=== PATIENT | female | born 1930 | race Caucasian/White ===

== ENCOUNTER 2017-03-29 18:08 | Inpatient (IN) | payer MEDICARE, BC ==
[2017-03-29 18:23] LABS: Glucose,Whole Blood >600 mg/dL (75-99)
[2017-03-29] MEDS ORDERED: SODIUM CHLORIDE 0.9% 1,000 ML IV STA (18:52)
--- NOTE | 2017-03-29 18:57 | ED ---
General Adult HPI - General Chief complaint: Recheck/Abnormal Lab/Rx Stated complaint: abn labs Time Seen by Provider: 03/29/17 18:45 Source: patient, EMS Mode of arrival: EMS Limitations: no limitations - History of Present Illness Initial comments: This 86-year-old white female presents with daughter with the complaint of having some lab abnormalities. She is currently bedbound. She has a history of significant renal disease. She apparently had labs drawn 3 days ago and her doctor called her today and told her to come to the ER. Her blood sugar apparently was over 500. Her kidney function and potassium was off as well. She, overall, feels quite well. She apparently had some chest pain and shortness of breath earlier but none since. She denies any known weakness but once again is bedbound. She has indwelling Norris catheter as well. She apparently has previously been on hospice but is not currently on hospice. She has stage IV renal disease but does not want any hemodialysis. No other complaints or modifying factors. Chest x-ray shows some subsegmental atelectasis but no heart failure. CODE STATUS is discussed in both patient and daughter who is the power of securities attorney relate that she is a no CODE STATUS. Overall, it is felt as though she is fairly significantly ill but would still require admission to the hospital for further treatment. Case will be discussed with internal medicine shortly patient is noted for further treatment. - Related Data Home Medications Medication Instructions Recorded Confirmed Calcium Carb-Vit D 500Mg-200Un 1 tab PO QAM 03/05/14 03/29/17 [Oscal 500+D] Enalapril [Vasotec] 5 mg PO QAM 03/05/14 03/29/17 Furosemide [Lasix] 40 mg PO DAILY 03/05/14 03/29/17 Potassium Chloride [Potassium 20 meq PO HS 03/05/14 03/29/17 Chloride ER] Diazepam [Valium] 2 mg PO TID 05/02/14 03/29/17 Cholecalciferol [Vitamin D3] 5,000 unit PO QAM 03/11/15 03/29/17 Levothyroxine Sodium [Synthroid] 150 mcg PO DAILY 03/11/15 03/29/17 Pantoprazole Sodium 40 mg PO DAILY 03/11/15 03/29/17 glipiZIDE [Glucotrol] 5 mg PO DAILY 03/11/15 03/29/17 Acetaminophen [Tylenol] 500 mg PO Q4-6H PRN 03/29/17 03/29/17 Carvedilol [Coreg] 25 mg PO BID 03/29/17 03/29/17 Isosorbide Mononitrate [Imdur] 120 mg PO DAILY 03/29/17 03/29/17 Latanoprost [Xalatan 0.005%] 1 drop RIGHT EYE HS 03/29/17 03/29/17 Nystatin [Nystop] 1 applic TOPICAL BID PRN 03/29/17 03/29/17 Ranolazine [Ranexa] 1,000 mg PO BID 03/29/17 03/29/17 Sennosides/Docusate Sodium [Dok 1 tab PO BID PRN 03/29/17 03/29/17 Plus Tablet] Allergies Allergy/AdvReac Type Severity Reaction Status Date / Time narcotic AdvReac Confusion Uncoded 03/29/17 18:10 Review of Systems ROS Statement: Those systems with pertinent positive or pertinent negative responses have been documented in the HPI. ROS Other: All systems not noted in ROS Statement are negative. Past Medical History Past Medical History: Chest Pain / Angina, Heart Failure, Diabetes Mellitus, Deep Vein Thrombosis (DVT), GERD/Reflux, Hearing Disorder / Deafness, Hyperlipidemia, Hypertension, Osteoarthritis (OA), Thyroid Disorder Additional Past Medical History / Comment(s): INCONT OF URINE, DIABEETIC RETINOPATHY, GLAUCOMA MAD DEGENERATION, History of Any Multi-Drug Resistant Organisms: None Reported Past Surgical History: Appendectomy, Cholecystectomy, Heart Catheterization With Stent, Hernia Repair, Orthopedic Surgery Additional Past Surgical History / Comment(s): TABITHA cataract, right shoulder 11 STENTS, UMBILICAL HERNIA REPAIR, TABITHA BREAST BIOPSIES- NEG, RT ROTATOR CUFF REPAIR, MESH FILTER IMPLNATED JANUARY OF 2013 D/T BLOOD CLOTS Past Anesthesia/Blood Transfusion Reactions: No Reported Reaction Additional Past Anesthesia/Blood Transfusion Reaction / Comment(s): HX BLOOD TRANSFUSION, VERTIGO Date of Last Stent Placement:: UNK Past Psychological History: No Psychological Hx Reported Smoking Status: Never smoker Past Alcohol Use History: None Reported Past Drug Use History: None Reported - Past Family History Father Family Medical History: Congestive Heart Failure (CHF), Hypertension, Myocardial Infarction ([place]), Prostate Disorder Mother Family Medical History: Congestive Heart Failure (CHF), Hyperlipidemia, Hypertension, Renal Disease General Exam - General Exam Comments Initial Comments: GENERAL: The patient is well nourished and well hydrated. VITAL SIGNS: Heart rate, blood pressure, respiratory rate reviewed as recorded in nurse's notes. EYES: Pupils are round and reactive. Extraocular movements are intact. No conjunctival / lid redness or swelling. ENT: No external evidence of injury, swelling, or ecchymosis. Airway is patent. Throat is clear. NECK: Nontender. No swelling or evidence of injury. No subcutaneous emphysema. Trachea is midline. No thyroid mass. HEART: Regular rate and rhythm. Good peripheral pulses. LUNGS/CHEST: Breath sounds clear and equal bilaterally. No rales, rhonchi, or wheezes. No ecchymosis, subcutaneous emphysema, or tenderness. ABDOMEN: Abdomen soft without tenderness. No palpable masses or organomegaly. No peritoneal signs. No abdominal wall swelling or ecchymosis. An indwelling Norris catheter is noted. EXTREMITIES: No extremity tenderness. Normal muscle tone and function. No thoracolumbar tenderness. NEUROLOGIC: Sensation is grossly intact. Cranial nerve exam reveals face is symmetrical, tongue is midline, speech is clear. SKIN: No abrasions or ecchymosis is noted. No induration or masses noted. There is a small sore noted to the right foot. There is slight decubitus ulcer noted. PSYCHIATRIC: Alert and oriented. Appropriate behavior and judgment. Limitations: no limitations Course Vital Signs 03/29/17 03/29/17 03/29/17 18:10 19:13 19:52 Temperature 97.8 F Pulse Rate 76 78 54 L Respiratory 18 18 16 Rate Blood Pressure 117/65 101/51 97/54 O2 Sat by Pulse 97 97 98 Oximetry 03/29/17 20:46 Temperature Pulse Rate 73 Respiratory 16 Rate Blood Pressure 97/54 O2 Sat by Pulse 98 Oximetry Medical Decision Making - Medical Decision Making The patient was seen and examined. All diagnostics were reviewed. The EKG shows a normal sinus rhythm with occasional PVC. There is nonspecific ST-T wave changes noted. The DC interval is 188, they castration is 76, and the QTc interval is 426. An IV was started and she is only mildly hydrated. Laboratory is reviewed. It shows that her glucoses severely elevated and she started on an insulin drip. She also has a significant urinary tract infection and Rocephin is ordered. In addition, her troponin is elevated. She apparently did have some slight chest pain and shortness breath earlier today and they gave her some nitroglycerin with relief. It likely is elevated due to her chronic renal disease but this will be trended. CODE STATUS is discussed with him in detail and she is a no code. - Lab Data Result diagrams: 03/29/17 19:01 03/29/17 19:01 Lab Results 03/29/17 03/29/17 03/29/17 Range/Units 18:17 19:01 19:01 WBC 10.1 (3.8-10.6) k/uL RBC 3.52 L (3.80-5.40) m/uL Hgb 12.5 (11.4-16.0) gm/dL Hct 37.6 (34.0-46.0) % MCV 106.7 H (80.0-100.0) fL MCH 35.4 H (25.0-35.0) pg MCHC 33.2 (31.0-37.0) g/dL RDW 12.6 (11.5-15.5) % Plt Count 248 (150-450) k/uL Neutrophils % 70 % Lymphocytes % 19 % Monocytes % 6 % Eosinophils % 3 % Basophils % 1 % Neutrophils # 7.1 (1.3-7.7) k/uL Lymphocytes # 1.9 (1.0-4.8) k/uL Monocytes # 0.6 (0-1.0) k/uL Eosinophils # 0.3 (0-0.7) k/uL Basophils # 0.1 (0-0.2) k/uL Macrocytosis Moderate PT (9.0-12.0) sec INR (<1.1) APTT (22.0-30.0) sec Sodium (137-145) mmol/L Potassium (3.5-5.1) mmol/L Chloride (98-107) mmol/L Carbon Dioxide (22-30) mmol/L Anion Gap mmol/L BUN (7-17) mg/dL Creatinine (0.52-1.04) mg/dL Est GFR (MDRD) Af Amer (>60 ml/min/1.73 sqM) Est GFR (MDRD) Non-Af (>60 ml/min/1.73 sqM) Glucose (74-99) mg/dL POC Glucose (mg/dL) >600 H (75-99) mg/dL POC Glu Support Worker ID Saundra Bhatti Plasma Lactic Acid Cliff (0.7-2.0) mmol/L Calcium (8.4-10.2) mg/dL Phosphorus (2.5-4.5) mg/dL Magnesium (1.6-2.3) mg/dL Total Bilirubin (0.2-1.3) mg/dL AST (14-36) U/L ALT (9-52) U/L Alkaline Phosphatase (38-126) U/L Total Creatine Kinase 42 (30-135) U/L CK-MB (CK-2) 1.3 (0.0-2.4) ng/mL CK-MB (CK-2) Rel Index 3.1 Troponin I 0.038 H* (0.000-0.034) ng/mL Total Protein (6.3-8.2) g/dL Albumin (3.5-5.0) g/dL TSH (0.465-4.680) mIU/L Urine Color Urine Appearance (Clear) Urine pH (5.0-8.0) Ur Specific [place] (1.001-1.035) Urine Protein (Negative) Urine Glucose (UA) (Negative) Urine Ketones (Negative) Urine Blood (Negative) Urine Nitrite (Negative) Urine Bilirubin (Negative) Urine Urobilinogen (<2.0) mg/dL Ur Leukocyte Esterase (Negative) Urine RBC (0-5) /hpf Urine WBC (0-5) /hpf Urine WBC Clumps (None) /hpf Urine Bacteria (None) /hpf Acetone, Qual (Negative) 03/29/17 03/29/17 03/29/17 Range/Units 19:01 19:01 19:01 WBC (3.8-10.6) k/uL RBC (3.80-5.40) m/uL Hgb (11.4-16.0) gm/dL Hct (34.0-46.0) % MCV (80.0-100.0) fL MCH (25.0-35.0) pg MCHC (31.0-37.0) g/dL RDW (11.5-15.5) % Plt Count (150-450) k/uL Neutrophils % % Lymphocytes % % Monocytes % % Eosinophils % % Basophils % % Neutrophils # (1.3-7.7) k/uL Lymphocytes # (1.0-4.8) k/uL Monocytes # (0-1.0) k/uL Eosinophils # (0-0.7) k/uL Basophils # (0-0.2) k/uL Macrocytosis PT 10.6 (9.0-12.0) sec INR 1.0 (<1.1) APTT 21.4 L (22.0-30.0) sec Sodium 129 L (137-145) mmol/L Potassium 5.3 H (3.5-5.1) mmol/L Chloride 94 L (98-107) mmol/L Carbon Dioxide 24 (22-30) mmol/L Anion Gap 11 mmol/L BUN 35 H (7-17) mg/dL Creatinine 2.40 H (0.52-1.04) mg/dL Est GFR (MDRD) Af Amer 23 (>60 ml/min/1.73 sqM) Est GFR (MDRD) Non-Af 19 (>60 ml/min/1.73 sqM) Glucose 652 H* (74-99) mg/dL POC Glucose (mg/dL) (75-99) mg/dL POC Glu Support Worker ID Plasma Lactic Acid Cliff 1.7 (0.7-2.0) mmol/L Calcium 9.0 (8.4-10.2) mg/dL Phosphorus 3.5 (2.5-4.5) mg/dL Magnesium 1.8 (1.6-2.3) mg/dL Total Bilirubin 0.5 (0.2-1.3) mg/dL AST 10 L (14-36) U/L ALT 23 (9-52) U/L Alkaline Phosphatase 61 (38-126) U/L Total Creatine Kinase (30-135) U/L CK-MB (CK-2) (0.0-2.4) ng/mL CK-MB (CK-2) Rel Index Troponin I (0.000-0.034) ng/mL Total Protein 5.5 L (6.3-8.2) g/dL Albumin 3.0 L (3.5-5.0) g/dL TSH 6.820 H (0.465-4.680) mIU/L Urine Color Urine Appearance (Clear) Urine pH (5.0-8.0) Ur Specific [place] (1.001-1.035) Urine Protein (Negative) Urine Glucose (UA) (Negative) Urine Ketones (Negative) Urine Blood (Negative) Urine Nitrite (Negative) Urine Bilirubin (Negative) Urine Urobilinogen (<2.0) mg/dL Ur Leukocyte Esterase (Negative) Urine RBC (0-5) /hpf Urine WBC (0-5) /hpf Urine WBC Clumps (None) /hpf Urine Bacteria (None) /hpf Acetone, Qual Negative (Negative) 03/29/17 Range/Units 19:01 WBC (3.8-10.6) k/uL RBC (3.80-5.40) m/uL Hgb (11.4-16.0) gm/dL Hct (34.0-46.0) % MCV (80.0-100.0) fL MCH (25.0-35.0) pg MCHC (31.0-37.0) g/dL RDW (11.5-15.5) % Plt Count (150-450) k/uL Neutrophils % % Lymphocytes % % Monocytes % % Eosinophils % % Basophils % % Neutrophils # (1.3-7.7) k/uL Lymphocytes # (1.0-4.8) k/uL Monocytes # (0-1.0) k/uL Eosinophils # (0-0.7) k/uL Basophils # (0-0.2) k/uL Macrocytosis PT (9.0-12.0) sec INR (<1.1) APTT (22.0-30.0) sec Sodium (137-145) mmol/L Potassium (3.5-5.1) mmol/L Chloride (98-107) mmol/L Carbon Dioxide (22-30) mmol/L Anion Gap mmol/L BUN (7-17) mg/dL Creatinine (0.52-1.04) mg/dL Est GFR (MDRD) Af Amer (>60 ml/min/1.73 sqM) Est GFR (MDRD) Non-Af (>60 ml/min/1.73 sqM) Glucose (74-99) mg/dL POC Glucose (mg/dL) (75-99) mg/dL POC Glu Support Worker ID Plasma Lactic Acid [place] (0.7-2.0) mmol/L Calcium (8.4-10.2) mg/dL Phosphorus (2.5-4.5) mg/dL Magnesium (1.6-2.3) mg/dL Total Bilirubin (0.2-1.3) mg/dL AST (14-36) U/L ALT (9-52) U/L Alkaline Phosphatase (38-126) U/L Total Creatine Kinase (30-135) U/L CK-MB (CK-2) (0.0-2.4) ng/mL CK-MB (CK-2) Rel Index Troponin I (0.000-0.034) ng/mL Total Protein (6.3-8.2) g/dL Albumin (3.5-5.0) g/dL TSH (0.465-4.680) mIU/L Urine Color Yellow Urine Appearance Turbid H (Clear) Urine pH 5.5 (5.0-8.0) Ur Specific [place] 1.019 (1.001-1.035) Urine Protein Trace H (Negative) Urine Glucose (UA) 4+ H (Negative) Urine Ketones Negative (Negative) Urine Blood Small H (Negative) Urine Nitrite Positive H (Negative) Urine Bilirubin Negative (Negative) Urine Urobilinogen <2.0 (<2.0) mg/dL Ur Leukocyte Esterase Large H (Negative) Urine RBC 20 H (0-5) /hpf Urine WBC >182 H (0-5) /hpf Urine WBC Clumps Many H (None) /hpf Urine Bacteria Many H (None) /hpf Acetone, Qual (Negative) Disposition Clinical Impression: Hyperkalemia, Hyperglycemia, Chronic renal disease, Diabetes, Elevated troponin , Chest pain, Dyspnea, Hypochloremia, Hyponatremia, UTI (urinary tract infection ) due to urinary indwelling Norris catheter, Decubital ulcer, Do not intubate, cardiopulmonary resuscitation (CPR)-only code status Disposition: ADMITTED IP TO THIS HOSP Condition: Fair Time of Disposition: 21:21 Decision Date: 03/29/17 Decision Time: 21:21
[2017-03-29 19:26] LABS: Basophils # (A) 0.1 k/uL (0-0.2); Basophils % (A) 1 %; CH 35.3; CHCM 33.2; Eosinophils # (A) 0.3 k/uL (0-0.7); Eosinophils % (A) 3 %; HCT 37.6 % (34.0-46.0); HDW 2.57; HGB 12.5 gm/dL (11.4-16.0); Luc # (Auto) 0.18; Luc % (Auto) 2; Lymphocytes # (A) 1.9 k/uL (1.0-4.8); Lymphocytes % (A) 19 %; MCH 35.4 pg (25.0-35.0); MCHC 33.2 g/dL (31.0-37.0); MCV 106.7 fL (80.0-100.0); Macrocytosis Moderate; Mean Platelet Volume 9.1; Monocytes # (A) 0.6 k/uL (0-1.0); Monocytes % (A) 6 %; Neutrophils # (A) 7.1 k/uL (1.3-7.7); Neutrophils % (A) 70 %; RBC 3.52 m/uL (3.80-5.40); RDW 12.6 % (11.5-15.5); WBC 10.1 k/uL (3.8-10.6); WBC (Perox) 9.99
--- NOTE | 2017-03-29 19:32 | XR ---
EXAMINATION TYPE: XR chest 1V portable DATE OF EXAM: 03/29/2017 COMPARISON: 03/11/2015 HISTORY: Short of breath TECHNIQUE: Single frontal view of the chest is obtained. FINDINGS: Heart is enlarged. There is mild linear density at the left lung base. There is no heart f ailure. There are chest leads. Thoracic aorta is atheromatous. I see no pleural effusion. IMPRESSION: There is mild scarring or subsegmental atelectasis at the left lung base without change compared to old exam. No heart failure. Mild cardiomegaly.
[2017-03-29 19:40] LABS: Appearance,Urine Turbid (Clear); Bacteria,Urine Many /hpf; Bilirubin,Urine Negative (Negative); Glucose,Urine (UA) 4+ (Negative); Ketones,Urine Negative (Negative); Leukocyte Esterase,Urine Large (Negative); Nitrite,Urine Positive (Negative); PH, Urine 5.5 (5.0-8.0); Particle Count 21096; Protein,Urine Trace (Negative); RBC,Urine 20 /hpf (0-5); Specific Gravity,Urine 1.019 (1.001-1.035); UA Billing (MACRO vs. MICRO) MICRO; Urobilinogen,Urine <2.0 mg/dL (<2.0); WBC,Urine >182 /hpf (0-5)
[2017-03-29 19:54] LABS: Prothrombin Time 10.6 sec (9.0-12.0)
[2017-03-29 20:00] LABS: ALT 23 U/L (9-52); AST 10 U/L (14-36); Alkaline Phosphatase 61 U/L (38-126); Anion Gap 11 mmol/L; Blood Urea Nitrogen 35 mg/dL (7-17); Carbon Dioxide 24 mmol/L (22-30); Chloride 94 mmol/L (98-107); Magnesium 1.8 mg/dL (1.6-2.3); Non-African American GFR(MDRD) 19 (>60 ml/min/1.73 sqM); Phosphorous 3.5 mg/dL (2.5-4.5); Potassium 5.3 mmol/L (3.5-5.1); Sodium 129 mmol/L (137-145); Total Bilirubin 0.5 mg/dL (0.2-1.3); Total Protein 5.5 g/dL (6.3-8.2)
[2017-03-29 20:04] LABS: Creatine Kinase MB 1.3 ng/mL (0.0-2.4)
[2017-03-29 20:11] LABS: Glucose 652 mg/dL (74-99)
[2017-03-29 20:12] LABS: Troponin I 0.038 ng/mL (0.000-0.034)
[2017-03-29 20:13] LABS: Partial Thromboplastin Time 21.4 sec (22.0-30.0)
[2017-03-29 21:31] LABS: Glucose,Whole Blood 579 mg/dL (75-99)
[2017-03-29] MEDS ORDERED: ASPIRIN 81 MG CHEW PO STA (21:33)
[2017-03-29] MEDS ORDERED: NITROGLYCERIN SL TABS 0.4 MG TAB SUBLINGUAL PRN (21:54)
[2017-03-29] MEDS ORDERED: HEPARIN SODIUM,PORCINE 5,000 UNIT/ML 1 ML VIAL IV PRN (21:54)
[2017-03-29] MEDS ORDERED: HEPARIN SODIUM,PORCINE 5,000 UNIT/ML 1 ML VIAL IV ONE (21:54)
[2017-03-29] MEDS ORDERED: NYSTATIN 100,000 UNIT/GM POWD 15 GM TOPICAL PRN (21:57)
[2017-03-29] MEDS ORDERED: ACETAMINOPHEN TAB 500 MG TAB PO PRN (21:57)
[2017-03-29] MEDS ORDERED: SENNOSIDES-DOCUSATE SODIUM 1 EACH TAB PO PRN (21:57)
[2017-03-29] MEDS ORDERED: INSULIN REGULAR 100 UNIT in SODIUM CHLORIDE 0.9% 100 ML IV ONE (22:00)
[2017-03-29 22:29] LABS: Glucose,Whole Blood 538 mg/dL (75-99)
[2017-03-29] MEDS: HEPARIN SODIUM,PORCINE/D5W PMX 25,000 UNIT in DEXTROSE/WATER 1 500ML.BAG IV SCH (22:40)
[2017-03-29] MEDS: NITROGLYCERIN OINT 1 INCH/GM PACKET TOPICAL SCH (23:10)
[2017-03-29 23:38] LABS: Glucose,Whole Blood 465 mg/dL (75-99)
[2017-03-29] MEDS: DIAZEPAM 2 MG TAB PO SCH (23:43)
[2017-03-30 00:30] LABS: Glucose,Whole Blood 361 mg/dL (75-99)
[2017-03-30 02:09] LABS: Glucose,Whole Blood 191 mg/dL (75-99)
[2017-03-30 02:41] LABS: Mean Platelet Volume 7.9
[2017-03-30 03:15] LABS: Creatine Kinase MB 1.2 ng/mL (0.0-2.4)
[2017-03-30 03:33] LABS: Troponin I 0.045 ng/mL (0.000-0.034)
[2017-03-30 03:42] LABS: Cholesterol 271 mg/dL (<200); HDL Cholesterol 38 mg/dL (40-60); Triglycerides 161 mg/dL (<150)
[2017-03-30 04:04] LABS: Glucose,Whole Blood 87 mg/dL (75-99)
[2017-03-30 05:43] LABS: Glucose,Whole Blood 115 mg/dL (75-99)
[2017-03-30] MEDS: LEVOTHYROXINE 100 MCG TAB PO SCH (06:03)
[2017-03-30] MEDS: INSULIN LISPRO (humaLOG) 300 UNIT/3 ML VIAL SQ SCH ×6 (06:53→21:00)
[2017-03-30 07:10] LABS: Glucose,Whole Blood 165 mg/dL (75-99)
[2017-03-30 07:22] LABS: Creatine Kinase MB 1.2 ng/mL (0.0-2.4)
[2017-03-30 07:26] LABS: Troponin I 0.048 ng/mL (0.000-0.034)
[2017-03-30] MEDS: CALCIUM CARB-VIT D 500MG-200UN 1 EACH TAB PO SCH (08:24)
[2017-03-30] MEDS: CHOLECALCIFEROL 1,000 UNIT TAB PO SCH (08:26)
[2017-03-30] MEDS: NITROGLYCERIN OINT 1 INCH/GM PACKET TOPICAL SCH ×4 (08:28→20:55)
[2017-03-30] MEDS: ASPIRIN 325 MG TAB PO SCH (08:32)
[2017-03-30] MEDS: PANTOPRAZOLE 40 MG TABLET PO SCH (08:32)
[2017-03-30] MEDS ORDERED: FUROSEMIDE 40 MG TAB PO SCH (09:00)
[2017-03-30] MEDS ORDERED: glipiZIDE 5 MG TAB PO SCH (09:00)
[2017-03-30] MEDS ORDERED: LEVOTHYROXINE 75 MCG TAB PO SCH (09:00)
[2017-03-30] MEDS ORDERED: LISINOPRIL 10 MG TAB PO SCH (09:00)
[2017-03-30 09:29] LABS: Calcium 8.8 mg/dL (8.4-10.2); Potassium 4.3 mmol/L (3.5-5.1); Total Bilirubin 0.6 mg/dL (0.2-1.3); Total Protein 5.5 g/dL (6.3-8.2)
--- NOTE | 2017-03-30 09:58 | P.NPCON ---
History of Present Illness - Reason for Consult acute renal failure - History of Present Illness Reason for consultation: Acute kidney injury on chronic kidney disease History of present illness: Patient is a 86-year-old female seen in renal consultation for acute kidney injury on chronic kidney disease. Patient recently had blood work done a few days ago and was advised to come to the hospital due to abnormal values. Her blood sugar was over 600 and she was also noted to be in acute renal failure. Patient does have chronic kidney disease stage IV with baseline creatinine in the range of 1.5-2 since 2015. Creatinine was 2.4 yesterday and is a little improved at 2.3 today. Her blood sugars were over 600 and was 165 as of this morning. Patient denies any use of NSAIDs. Denies any vomiting or diarrhea. She denies any chest pain or shortness of breath. She does have a Norris catheter in place. Apparently the patient was on hospice for the past 1 year but her condition improved and she was subsequently taken off hospice about a month ago. Denies family history of renal disease. Her prior urinalysis was quite benign and this admission was suggestive of a urinary tract infection. Urine culture is pending. Her blood pressures have been on the lower side in the systolic 80s to 90s. She is currently receiving Lasix as well as IV fluids. Vital signs are stable. General: The patient appeared well nourished and normally developed. HEENT: Head exam is unremarkable. Neck is without jugular venous distension. LUNGS: Lungs are clear to auscultation and percussion. Breath sounds decreased. HEART: Rate and Rhythm are regular. First and second heart sounds normal. No murmurs, rubs or gallops. ABDOMEN: Abdominal exam reveals normal bowel sounds. Non-tender and non- distended. No evidence of peritonitis. EXTREMITITES: No clubbing, cyanosis, or edema. Past Medical History Past Medical History: Chest Pain / Angina, Heart Failure, Diabetes Mellitus, Deep Vein Thrombosis (DVT), GERD/Reflux, Hearing Disorder / Deafness, Hyperlipidemia, Hypertension, Osteoarthritis (OA), Thyroid Disorder Additional Past Medical History / Comment(s): INCONT OF URINE, DIABEETIC RETINOPATHY, GLAUCOMA MAD DEGENERATION, History of Any Multi-Drug Resistant Organisms: None Reported Past Surgical History: Appendectomy, Cholecystectomy, Heart Catheterization With Stent, Hernia Repair, Orthopedic Surgery Additional Past Surgical History / Comment(s): TABITHA cataract, right shoulder 11 STENTS, UMBILICAL HERNIA REPAIR, TABITHA BREAST BIOPSIES- NEG, RT ROTATOR CUFF REPAIR, MESH FILTER IMPLNATED JANUARY OF 2013 D/T BLOOD CLOTS Past Anesthesia/Blood Transfusion Reactions: No Reported Reaction Additional Past Anesthesia/Blood Transfusion Reaction / Comment(s): HX BLOOD TRANSFUSION, VERTIGO Date of Last Stent Placement:: UNK Past Psychological History: No Psychological Hx Reported Additional Psychological History / Comment(s): 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 GETS NO OUTSIDE SERVICES. Smoking Status: Never smoker Past Alcohol Use History: None Reported Past Drug Use History: None Reported - Past Family History Father Family Medical History: Congestive Heart Failure (CHF), Hypertension, Myocardial Infarction ([place]), Prostate Disorder Mother Family Medical History: Congestive Heart Failure (CHF), Hyperlipidemia, Hypertension, Renal Disease Medications and Allergies Home Medications Medication Instructions Recorded Confirmed Type Calcium Carb-Vit D 500Mg-200Un 1 tab PO QAM 03/05/14 03/29/17 History [Oscal 500+D] Enalapril [Vasotec] 5 mg PO QAM 03/05/14 03/29/17 History Furosemide [Lasix] 40 mg PO DAILY 03/05/14 03/29/17 History Potassium Chloride [Potassium 20 meq PO HS 03/05/14 03/29/17 History Chloride ER] Diazepam [Valium] 2 mg PO TID 05/02/14 03/29/17 History Cholecalciferol [Vitamin D3] 5,000 unit PO QAM 03/11/15 03/29/17 History Levothyroxine Sodium [Synthroid] 150 mcg PO DAILY 03/11/15 03/29/17 History Pantoprazole Sodium 40 mg PO DAILY 03/11/15 03/29/17 History glipiZIDE [Glucotrol] 5 mg PO DAILY 03/11/15 03/29/17 History Acetaminophen [Tylenol] 500 mg PO Q4-6H PRN 03/29/17 03/29/17 History Carvedilol [Coreg] 25 mg PO BID 03/29/17 03/29/17 History Isosorbide Mononitrate [Imdur] 120 mg PO DAILY 03/29/17 03/29/17 History Latanoprost [Xalatan 0.005%] 1 drop RIGHT EYE HS 03/29/17 03/29/17 History Nystatin [Nystop] 1 applic TOPICAL BID PRN 03/29/17 03/29/17 History Ranolazine [Ranexa] 1,000 mg PO BID 03/29/17 03/29/17 History Sennosides/Docusate Sodium [Dok 1 tab PO BID PRN 03/29/17 03/29/17 History Plus Tablet] Allergies Allergy/AdvReac Type Severity Reaction Status Date / Time narcotic AdvReac Confusion Uncoded 03/29/17 18:10 Physical Exam Vitals: Vital Signs Temp Pulse Pulse Resp BP BP Pulse Ox 03/30/17 08:00 96.9 F L 80 18 88/48 98 03/30/17 04:00 81 18 93/53 93 L 03/29/17 23:44 96.9 F L 97 18 100/55 97 03/29/17 22:46 80 16 115/53 97 03/29/17 21:38 80 16 92/50 97 03/29/17 20:46 73 16 97/54 98 03/29/17 19:52 54 L 16 97/54 98 03/29/17 19:13 78 18 101/51 97 03/29/17 18:10 97.8 F 76 18 117/65 97 Intake and Output 03/29/17 03/30/17 03/30/17 22:59 06:59 14:59 Intake Total 5.252 635.484 Balance 5.252 635.484 Intake: IV 600 Sodium Chloride 0.9% 1, 600 000 ml @ 75 mls/hr IV . [id number] STA Rx#:[id number] Intake, IV Titration 5.252 35.484 Amount Insulin Regular 100 unit 5.252 35.484 In Sodium Chloride 0.9% 100 ml @ 4 UNIT/HR 4.04 mls/hr IV .Q24H ONE Rx#: [id number] Other: Voiding Method Indwelling Catheter Indwelling Catheter Weight 77.111 kg 84.6 kg Results - Lab Results Most recent lab results Calcium 8.8 mg/dL (8.4-10.2) 03/30/17 06:31 Phosphorus 3.5 mg/dL (2.5-4.5) 03/29/17 19:01 Magnesium 1.8 mg/dL (1.6-2.3) 03/29/17 19:01 03/30/17 02:17 03/30/17 06:31 Assessment and Plan Plan: Assessment: #1. Nonoliguric acute kidney injury mostly prerenal from severe hyperglycemia causing intravascular volume depletion. Patient also receiving Lasix as well as an ALLAN inhibitor. Blood pressures are on the lower side in the systolic 80s to 90s which can further worsened the kidney injury. 5 and was 2.4 on admission and is 2.3 today. #2. 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 Baseline creatinine in the range of 1.5- 2 since 2015. #3. Diabetes mellitus. Blood sugars better controlled now. #4. History of hypertension. Blood pressure is now on the lower side. #5. Hypertonic hyponatremia secondary to hyperglycemia. Improved with better blood sugar control. #6. Hyperkalemia secondary to hyperglycemia. Also improved with better blood sugar control. #7. Pyuria. Urine culture pending. Plan: Discontinue Lasix. Hold antihypertensives for systolic blood pressure less than 120. Maintain normal saline to be run at 50 mL an hour for now. Encouraged oral intake. Avoid nephrotoxic agents and hypotensive episodes. Repeat electrolytes in the morning. Patient does not wish for any form of renal replacement therapy if indicated. Thank you for the consultation. I will continue to follow the patient with you during her hospital stay.
[2017-03-30 10:20] LABS: Hemoglobin A1C 10.6 % (4.2-6.1)
--- NOTE | 2017-03-30 10:22 | ECHOF ---
Referral Reason: MEASUREMENTS -------- HEIGHT: 165.1 cm WEIGHT: 84.4 kg BP: 93/53 IVSd: 1.4 cm (0.6 - 1.1) LVIDd: 3.3 cm (3.9 - 5.3) LVPWd: 1.2 cm (0.6 - 1.1) IVSs: 1.6 cm LVIDs: 3.1 cm LVPWs: 1.4 cm Ao Diam: 2.8 cm (2.0 - 3.7) LA Diam: 3.7 cm (2.7 - 3.8) MV EXCURSION: 16.486 mm (> 18.000) MV EF SLOPE: 50 mm/s (70 - 150) EPSS: 0.5 cm MV E Jose: 0.51 m/s MV DecT: 311 ms MV A Jose: 0.82 m/s MV E/A Ratio: 0.63 RAP: 5.00 mmHg RVSP: 24.14 mmHg FINDINGS -------- Sinus rhythm. This was a technically difficult study with suboptimal views. There is mild concentric left ventricular hypertrophy. Overall left ventricular systolic function is low-normal with, an EF between 50 - 55 %. The right ventricle is normal in size. The left atrial size is normal. The right atrial size is normal. There is mild aortic valve sclerosis. There is no evidence of aortic regurgitation. Mild mitral annular calcification present. There is trace to mild mitral regurgitation. Mild tricuspid regurgitation present. Right ventricular systolic pressure is normal at < 35 mmHg. There is no evidence of pulmonary hypertension. The pulmonic valve was not well visualized. Echo free space may represent effusion or a pericardial fat pad. CONCLUSIONS -------- 1. This was a technically difficult study with suboptimal views. 2. The pulmonic valve was not well visualized. 3. Echo free space may represent effusion or a pericardial fat pad. 4. There is mild concentric left ventricular hypertrophy. 5. Overall left ventricular systolic function is low-normal with, an EF between 50 - 55 %. 6. There is mild aortic valve sclerosis. 7. Mild mitral annular calcification present. 8. There is trace to mild mitral regurgitation. 9. Mild tricuspid regurgitation present. 10. Right ventricular systolic pressure is normal at < 35 mmHg. 11. There is no evidence of pulmonary hypertension. SHIPFITTER APPRENTICE: Cari Alvarado RDCS
[2017-03-30] MEDS: ISOSORBIDE MONONITRATE ER 60 MG TAB.ER.24H PO SCH (11:16)
[2017-03-30] MEDS: DIAZEPAM 2 MG TAB PO SCH ×3 (11:16→21:01)
[2017-03-30] MEDS: CARVEDILOL 12.5 MG TAB PO SCH ×2 (11:16→20:55)
[2017-03-30] MEDS: RANOLAZINE 500 MG TAB.ER.12H PO SCH ×2 (11:17→20:55)
[2017-03-30] MEDS: SODIUM CHLORIDE 0.9% 1,000 ML IV SCH (11:18)
[2017-03-30 11:32] LABS: Glucose,Whole Blood 212 mg/dL (75-99)
[2017-03-30 14:40] VITALS: BMI 31.0
[2017-03-30 16:55] LABS: Glucose,Whole Blood 231 mg/dL (75-99)
[2017-03-30 20:41] LABS: Glucose,Whole Blood 258 mg/dL (75-99)
[2017-03-30] MEDS ORDERED: POTASSIUM CHLORIDE ER 20 MEQ TAB.ER PO SCH (21:00)
[2017-03-30] MEDS ORDERED: INSULIN DETEMIR 100 UNIT/ML 10 ML VIAL SQ SCH (21:00)
[2017-03-30] MEDS: LATANOPROST 0.005% OPHTH DROPS 2.5 ML BTL RIGHT EYE SCH (21:00)
[2017-03-31] MEDS: CARVEDILOL 12.5 MG TAB PO SCH ×3 (00:14→16:13)
[2017-03-31] MEDS: HEPARIN SODIUM,PORCINE/D5W PMX 25,000 UNIT in DEXTROSE/WATER 1 500ML.BAG IV SCH (00:14)
[2017-03-31 03:08] LABS: Basophils # (A) 0.1 k/uL (0-0.2); Basophils % (A) 1 %; CH 34.8; CHCM 33.8; Eosinophils # (A) 0.3 k/uL (0-0.7); Eosinophils % (A) 4 %; HCT 34.1 % (34.0-46.0); HGB 11.9 gm/dL (11.4-16.0); Luc # (Auto) 0.17; Luc % (Auto) 2; Lymphocytes # (A) 3.2 k/uL (1.0-4.8); Lymphocytes % (A) 33 %; MCH 36.2 pg (25.0-35.0); MCV 103.4 fL (80.0-100.0); Macrocytosis Slight; Mean Platelet Volume 7.8; Monocytes # (A) 0.3 k/uL (0-1.0); Monocytes % (A) 4 %; Neutrophils # (A) 5.5 k/uL (1.3-7.7); Neutrophils % (A) 58 %; RBC 3.29 m/uL (3.80-5.40); RDW 12.8 % (11.5-15.5); WBC 9.6 k/uL (3.8-10.6); WBC (Perox) 9.71
[2017-03-31 04:02] LABS: Calcium 8.4 mg/dL (8.4-10.2); Potassium 3.8 mmol/L (3.5-5.1)
[2017-03-31] MEDS: SODIUM CHLORIDE 0.9% 1,000 ML IV SCH (06:05)
[2017-03-31] MEDS: LEVOTHYROXINE 100 MCG TAB PO SCH (06:06)
[2017-03-31 06:39] LABS: Glucose,Whole Blood 205 mg/dL (75-99)
[2017-03-31] MEDS: INSULIN LISPRO (humaLOG) 300 UNIT/3 ML VIAL SQ SCH ×7 (06:59→21:27)
[2017-03-31] MEDS: RANOLAZINE 500 MG TAB.ER.12H PO SCH ×2 (08:32→22:27)
[2017-03-31] MEDS: ASPIRIN 325 MG TAB PO SCH (08:32)
[2017-03-31] MEDS: CHOLECALCIFEROL 1,000 UNIT TAB PO SCH (08:33)
[2017-03-31] MEDS: CALCIUM CARB-VIT D 500MG-200UN 1 EACH TAB PO SCH (08:33)
[2017-03-31] MEDS: DIAZEPAM 2 MG TAB PO SCH ×3 (08:33→21:28)
[2017-03-31] MEDS: NITROGLYCERIN OINT 1 INCH/GM PACKET TOPICAL SCH ×4 (08:34→22:41)
[2017-03-31] MEDS: ISOSORBIDE MONONITRATE ER 60 MG TAB.ER.24H PO SCH (08:34)
[2017-03-31] MEDS: PANTOPRAZOLE 40 MG TABLET PO SCH (08:34)
--- NOTE | 2017-03-31 10:09 | P.PN ---
Subjective Principal diagnosis: Is an 86-year-old female seen in consultation because of acute kidney injury and chronic kidney disease. She has had chronic kidney disease stage IV with a baseline creatinine of about 2. Her acute kidney injury is deemed to be from hyperglycemia induced volume depletion,'s some history of diarrhea and additionally she had low blood pressure. Blood sugars are, her urine output only documented 4 50 mL with a Norris catheter. Patient is feeling better. She is eating better since yesterday. No nausea vomiting diarrhea. She is constipated for the last 1 week prior to which she had diarrhea. She continues to have low blood pressure in the 90s to 110 range. She is bedridden for some time now because of her legs giving up. Denies any dizziness shortness of breath chest pain sweating cough dysuria frequency. Should be noted that she has a Norris catheter now in the hospital. She is known with coronary artery disease diabetes heart failure and has had a heart catheterization with stent. Objective - Vital Signs Vital signs: Vital Signs Temp 96.8 F L 03/31/17 08:00 Pulse 78 03/31/17 08:00 Resp 18 03/31/17 08:00 BP 106/50 03/31/17 08:00 Pulse Ox 98 03/31/17 08:00 Intake & Output 03/30/17 03/31/17 03/31/17 18:59 06:59 18:59 Intake Total 200 1272.983 100 Output Total 450 Balance 200 822.983 100 Weight 84.6 kg 85 kg Intake: IV 400 Sodium Chloride 0.9% 1, 400 000 ml @ 75 mls/hr IV . [id number] [facility] Rx#:[id number] Intake, IV Titration 872.983 Amount Heparin Sodium,Porcine/ 472.983 D5w Pmx 25,000 unit In Dextrose/Water 1 500ml. bag @ 12 UNITS/KG/HR 18.5 mls/hr IV .Q24H [facility] Rx#: [id number] Sodium Chloride 0.9% 1, 400 000 ml @ 50 mls/hr IV . Q20H [facility] Rx#:[id number] Oral 200 100 Output: Urine 450 Other: Voiding Method Indwelling Catheter Indwelling Catheter Indwelling Catheter On exam he is awake alert oriented comfortable. HEENT exam no JVP neck is supple no facial asymmetry Lungs are clear to auscultation percussion good air entry bilaterally Heart sounds are unremarkable for any murmur rub gallop Abdomen soft nontender no organomegaly status masses Extremity exam was no edema Neurologically awake alert oriented moves all her extremities. has generalized weakness - Labs CBC & Chem 7: 03/31/17 02:50 03/31/17 02:50 Labs: Abnormal Lab Results - Last 24 Hours (Table) 03/30/17 03/30/17 03/30/17 Range/Units 02:17 11:30 16:24 RBC (3.80-5.40) m/uL MCV (80.0-100.0) fL MCH (25.0-35.0) pg APTT (22.0-30.0) sec BUN (7-17) mg/dL Creatinine (0.52-1.04) mg/dL Glucose (74-99) mg/dL POC Glucose (mg/dL) 212 H (75-99) mg/dL Hemoglobin A1c 10.6 H (4.2-6.1) % Troponin I 0.035 H* (0.000-0.034) ng/mL 03/30/17 03/30/17 03/30/17 Range/Units 16:53 20:24 21:55 RBC (3.80-5.40) m/uL MCV (80.0-100.0) fL MCH (25.0-35.0) pg APTT (22.0-30.0) sec BUN (7-17) mg/dL Creatinine (0.52-1.04) mg/dL Glucose (74-99) mg/dL POC Glucose (mg/dL) 231 H 258 H (75-99) mg/dL Hemoglobin A1c (4.2-6.1) % Troponin I 0.040 H* (0.000-0.034) ng/mL 03/31/17 03/31/17 03/31/17 Range/Units 02:50 02:50 02:50 RBC 3.29 L (3.80-5.40) m/uL MCV 103.4 H (80.0-100.0) fL MCH 36.2 H (25.0-35.0) pg APTT (22.0-30.0) sec BUN 41 H (7-17) mg/dL Creatinine 2.40 H (0.52-1.04) mg/dL Glucose 189 H (74-99) mg/dL POC Glucose (mg/dL) (75-99) mg/dL Hemoglobin A1c (4.2-6.1) % Troponin I 0.045 H* (0.000-0.034) ng/mL 03/31/17 03/31/17 Range/Units 02:50 06:32 RBC (3.80-5.40) m/uL MCV (80.0-100.0) fL MCH (25.0-35.0) pg APTT 52.0 H (22.0-30.0) sec BUN (7-17) mg/dL Creatinine (0.52-1.04) mg/dL Glucose (74-99) mg/dL POC Glucose (mg/dL) 205 H (75-99) mg/dL Hemoglobin A1c (4.2-6.1) % Troponin I (0.000-0.034) ng/mL Microbiology - Last 24 Hours (Table) 03/29/17 19:01 Urine Culture - Preliminary Urine,Catheterized Gram Neg Bacilli 03/29/17 19:01 Blood Culture - Preliminary Blood No Growth after 24 hours Assessment and Plan Plan: Impression. 1. Acute kidney injury from low blood pressure from combination of osmotic diuresis from a high blood sugar, diarrhea. Creatinine is unchanged at 2.4 this morning 2. Chronic kidney disease stage IV with with a baseline creatinine off 2.1 as of 07/29/2015 and 2.2 as of 09/14/2015, GFR was 21 mL per minute 3. Hypotension, on Coreg 25 twice a day. 4. Diabetes mellitus controlled improved now. 5. Anemia with hemoglobin 11.9. Recommendation. Reduce coreg 12.5 twice a day Strict I's and O's. Encourage oral intake. Check orthostatic changes sitting up with feet dangling.
[2017-03-31 12:00] LABS: Glucose,Whole Blood 205 mg/dL (75-99)
--- NOTE | 2017-03-31 13:41 | P.PN ---
Subjective This is an 86-year-old female with known history of coronary artery disease and multiple stent placements in the past, hypertension, hyperlipidemia , hypothyroidism, GERD, prior DVT, renal failure stage IV, who is a complete bedrest. Patient presented to the hospital because phone call was made by her physician that her blood sugars were in the range of 600. Overall the patient states she's been feeling well at home. She is complete bedrest. She states approximately one to one and a half week ago she did have an episode of chest discomfort which lasted only briefly. She followed with cardiology in the [place] area, Dr. Shreya Rosa. She states that she had an NM couple of years ago, does not wish to have any further cardiac catheterizations performed wishes medical therapy only. She is also stage IV renal failure, and refuses dialysis. She was on hospice for approximately one year when they ultimately discharged her. Her feelings are still the same at this time, she wishes to not undergo any dialysis, no cardiac procedures either. Cardiology consultation was requested because of the one episode of chest pain. 03/31/2017 Patient seen and examined this morning she denies any further chest discomfort. Echocardiogram with Doppler study was performed which revealed an ejection fraction of 50-55%. At this point, we will continue the patient on her current medications. Arrangements are being made for possible discharge home in the morning. Objective - Vital Signs Vital signs: Vital Signs Temp 96.8 F L 03/31/17 08:00 Pulse 78 03/31/17 08:00 Resp 18 03/31/17 08:00 BP 106/50 03/31/17 08:00 Pulse Ox 98 03/31/17 08:00 Intake & Output 03/30/17 03/31/17 03/31/17 18:59 06:59 18:59 Intake Total 200 1272.983 100 Output Total 450 Balance 200 822.983 100 Weight 84.6 kg 85 kg Intake: IV 400 Sodium Chloride 0.9% 1, 400 000 ml @ 75 mls/hr IV . [id number] [facility] Rx#:[id number] Intake, IV Titration 872.983 Amount Heparin Sodium,Porcine/ 472.983 D5w Pmx 25,000 unit In Dextrose/Water 1 500ml. bag @ 12 UNITS/KG/HR 18.5 mls/hr IV .Q24H [facility] Rx#: [id number] Sodium Chloride 0.9% 1, 400 000 ml @ 50 mls/hr IV . Q20H [facility] Rx#:[id number] Oral 200 100 Output: Urine 450 Other: Voiding Method Indwelling Catheter Indwelling Catheter Indwelling Catheter - Exam PHYSICAL EXAMINATION: HEENT: Head is atraumatic, normocephalic. Pupils equal, round. Neck is supple. There is no elevated jugular venous pressure. HEART EXAMINATION: Heart S1 and S2 systolic murmur is heard. CHEST EXAMINATION: Lungs are clear to auscultation and precussion. No chest wall tenderness is noted on palpation or with deep breathing. ABDOMEN: Soft, nontender. Bowel sounds are heard. No organomegaly noted. EXTREMITIES: 2+ peripheral pulses with no evidence of peripheral edema and no calf tenderness noted. NEUROLOGIC patient is awake, alert and oriented -3. . - Labs CBC & Chem 7: 03/31/17 02:50 03/31/17 02:50 Labs: Abnormal Lab Results - Last 24 Hours (Table) 03/30/17 03/30/17 03/30/17 Range/Units 16:24 16:53 20:24 RBC (3.80-5.40) m/uL MCV (80.0-100.0) fL MCH (25.0-35.0) pg APTT (22.0-30.0) sec BUN (7-17) mg/dL Creatinine (0.52-1.04) mg/dL Glucose (74-99) mg/dL POC Glucose (mg/dL) 231 H 258 H (75-99) mg/dL Troponin I 0.035 H* (0.000-0.034) ng/mL 03/30/17 03/31/17 03/31/17 Range/Units 21:55 02:50 02:50 RBC 3.29 L (3.80-5.40) m/uL MCV 103.4 H (80.0-100.0) fL MCH 36.2 H (25.0-35.0) pg APTT (22.0-30.0) sec BUN (7-17) mg/dL Creatinine (0.52-1.04) mg/dL Glucose (74-99) mg/dL POC Glucose (mg/dL) (75-99) mg/dL Troponin I 0.040 H* 0.045 H* (0.000-0.034) ng/mL 03/31/17 03/31/17 03/31/17 Range/Units 02:50 02:50 06:32 RBC (3.80-5.40) m/uL MCV (80.0-100.0) fL MCH (25.0-35.0) pg APTT 52.0 H (22.0-30.0) sec BUN 41 H (7-17) mg/dL Creatinine 2.40 H (0.52-1.04) mg/dL Glucose 189 H (74-99) mg/dL POC Glucose (mg/dL) 205 H (75-99) mg/dL Troponin I (0.000-0.034) ng/mL 03/31/17 Range/Units 11:58 RBC (3.80-5.40) m/uL MCV (80.0-100.0) fL MCH (25.0-35.0) pg APTT (22.0-30.0) sec BUN (7-17) mg/dL Creatinine (0.52-1.04) mg/dL Glucose (74-99) mg/dL POC Glucose (mg/dL) 205 H (75-99) mg/dL Troponin I (0.000-0.034) ng/mL Microbiology - Last 24 Hours (Table) 03/29/17 19:01 Urine Culture - Preliminary Urine,Catheterized Gram Neg Bacilli 03/29/17 19:01 Blood Culture - Preliminary Blood No Growth after 24 hours Assessment and Plan Plan: assessment and plan #1 severe hyperglycemia #2 atypical chest pain, patient does have abnormal troponins, not consistent with acute coronary syndrome, likely secondary toabnormal renal function. #3 acute on chronic kidney disease stage IV #4 diabetes #5 hyponatremia, likely secondary to hyperglycemia. Improved blood sugar control #6 known history of coronary artery disease with multiple stent placements in the past #7 hypertension #8 hyperlipidemia Plan From cardiology's perspective, we will continue the patient on her current medications including the Ranexa that was recently added by her molder setter. She may be able to be discharged once cleared by her primary. DNP note has been reviewed, I agree with a documented findings and plan of care. Patient was seen and examined.
--- NOTE | 2017-03-31 14:21 | HP ---
Chief complaints are abnormal labs, weakness, high blood pressure. HISTORY OF PRESENT ILLNESS: This 86-year-old woman with a past medical history of multiple medical problems including history of diabetes mellitus, history of DVT, GERD, history of cholecystectomy, CAD, stent being followed by primary physician in the outpatient setting was admitted with high blood sugars. The patient also had hypertension. The patient is not feeling better. The sugars are apparently more than 500. The patient also had renal failure also. Troponins were found to be indeterminate. The patient also had features of UTI. The patient was admitted for further evaluation. Insulin drip was initiated. There is no history of any fevers, rigors. No history of headache, loss of consciousness or seizures. PAST MEDICAL HISTORY: History of diabetes mellitus type 2, history of CHF, history of DVT, GERD, multiple other medical issues. HOME MEDICATIONS: 1. Senna 1 tablet b.i.d. p.r.n. 2. Glucotrol 5 mg p.o. daily. 3. Ranexa 1000 mg p.o. b.i.d. 4. Protonix 40 mg daily. 5. Nystop. 6. Synthroid 150 mcg p.o. daily. 7. Xalatan 0.005% one drop right eye q.h.s. 8. Imdur 120 mg p.o. daily. 9. Lasix 40 mg p.o. daily. 10. Vasotec 5 mg q.a.m. 11. Valium 2 mg p.o. t.i.d. 12 . Vitamin D3, 5000 q.a.m. 13. Coreg 25 mg p.o. b.i.d. 14. Calcium with vitamin D one p.o. q.a.m. 15. Tylenol 500 mg q.4 to 6 p.r.n. Allergies are NARCOTIC. FAMILY HISTORY: History of CHF, hypertension, myocardial infarction, prostate disorder. SOCIAL HISTORY: No history of smoking. No history of alcohol. REVIEW OF SYSTEM: ENT: No diminished hearing or diminished vision. CARDIOVASCULAR. As mentioned earlier. RESPIRATORY: As mentioned earlier. GI: No nausea. : No dysuria. NERVOUS SYSTEM: No numbness or weakness. ALLERGY/IMMUNOLOGY: No asthma or hayfever. MUSCULOSKELETAL: As mentioned earlier. HEMATOLOGY/ONCOLOGY: No history of anemia. ENDOCRINE: Hypothyroidism. CONSTITUTIONAL: As mentioned earlier . DERMATOLOGY: Negative. RHEUMATOLOGY: Negative. PSYCHIATRY: As mentioned earlier. PHYSICAL EXAM: The patient is alert and oriented x3. Pulse is 97, blood pressure is 100/55, respirations 18, temperature 96.9, pulse ox 97% on room air. HEENT: Conjunctivae normal. NECK: No jugular venous distention. CARDIOVASCULAR: S1 and S2, muffled. RESPIRATORY: Breath sounds diminished at the bases. Bilateral scattered rhonchi and crackles. ABDOMEN: Soft, obese, nontender. LEGS: No edema, no swelling. NERVOUS SYSTEM: Higher function as mentioned earlier. Moves all 4 limbs. No focal deficits. LYMPHATICS: No lymphadenopathy of the neck, axillae or groin. SKIN; No ulcers, rashes or bleeding. Labs are WBC 10.1. Sodium 129, potassium 5.3. ASSESSMENT: 1. Uncontrolled blood sugars and , hyperosmolar state. 2. Acute on chronic kidney disease. 3. Troponin 0.038 indeterminate. 4. Hyponatremia. 5. Hyperkalemia, mild. 6. History of congestive heart failure. 7. History of deep venous thrombosis. 8. History of hypertension. 9. History of hyperlipidemia. 10. Hypothyroidism. 11. History of coronary artery disease, stent. 12. NO CODE, NO CPR, NO VENT. RECOMMENDATIONS AND DISCUSSION: This 86-year-old woman presented with multiple complex medical issues. Will monitor the patient closely. Continue the current medications. Continue symptomatic treatment. I would recommend insulin drip, monitor closely. Cardiology consultation. Nephrology consultation otherwise. Would also increase the dose of levothyroxine as well. Further recommendations to follow. MTDD
[2017-03-31 16:46] LABS: Glucose,Whole Blood 192 mg/dL (75-99)
[2017-03-31 17:15] LABS: Glucose,Whole Blood 214 mg/dL (75-99)
[2017-03-31 20:30] LABS: Glucose,Whole Blood 202 mg/dL (75-99)
[2017-03-31] MEDS ORDERED: INSULIN DETEMIR 100 UNIT/ML 10 ML VIAL SQ SCH (21:00)
[2017-03-31] MEDS: LATANOPROST 0.005% OPHTH DROPS 2.5 ML BTL RIGHT EYE SCH (22:16)
[2017-04-01 03:02] LABS: Glucose,Whole Blood 178 mg/dL (75-99)
[2017-04-01] MEDS: SODIUM CHLORIDE 0.9% 1,000 ML IV SCH (04:26)
[2017-04-01] MEDS: LEVOTHYROXINE 100 MCG TAB PO SCH (06:30)
[2017-04-01 07:27] LABS: Glucose,Whole Blood 91 mg/dL (75-99)
[2017-04-01 07:42] VITALS: BP 124/60; PULSE 76; RESP 16; TEMP 97.2
[2017-04-01] MEDS: INSULIN LISPRO (humaLOG) 300 UNIT/3 ML VIAL SQ SCH ×4 (08:14→12:46)
[2017-04-01] MEDS: CARVEDILOL 12.5 MG TAB PO SCH (08:15)
[2017-04-01 08:16] LABS: Basophils # (A) 0.1 k/uL (0-0.2); Basophils % (A) 1 %; CH 34.4; CHCM 33.2; Eosinophils # (A) 0.4 k/uL (0-0.7); Eosinophils % (A) 5 %; HCT 32.4 % (34.0-46.0); HDW 2.56; Luc # (Auto) 0.17; Luc % (Auto) 2; Lymphocytes # (A) 1.9 k/uL (1.0-4.8); Lymphocytes % (A) 25 %; MCH 35.3 pg (25.0-35.0); MCV 103.9 fL (80.0-100.0); Macrocytosis Slight; Mean Platelet Volume 7.2; Monocytes # (A) 0.4 k/uL (0-1.0); Monocytes % (A) 5 %; Neutrophils # (A) 4.9 k/uL (1.3-7.7); Neutrophils % (A) 63 %; RBC 3.12 m/uL (3.80-5.40); RDW 12.5 % (11.5-15.5); WBC 7.8 k/uL (3.8-10.6); WBC (Perox) 8.22
--- NOTE | 2017-04-01 08:21 | PN ---
DATE OF SERVICE: 03/30/2017 This 86-year-old woman was admitted with uncontrolled blood sugars, also had renal failure. The creatinine is 2.3 at this time. Blood sugars are being monitored. The glucose is 131. The hemoglobin A1c is 10.6 and patient had multiple other lab abnormalities also. PAST MEDICAL HISTORY: Reviewed. REVIEW OF SYSTEMS: CARDIOVASCULAR: No angina. RESPIRATORY: As mentioned. GI: No nausea. : No dysuria. NERVOUS SYSTEM: No numbness or weakness. ALLERGY/IMMUNOLOGY: No asthma or hayfever. MUSCULOSKELETAL: As mentioned. HEMATOLOGY: No history of anemia. ENDOCRINE: History of diabetes. CONSTITUTIONAL: As mentioned earlier. DERMATOLOGY: Negative. RHEUMATOLOGY: Negative. PSYCHIATRY: As mentioned earlier. PHYSICAL EXAMINATION: The patient is alert and oriented x3. Pulse 77, blood pressure 101/48, respirations 17, temperature 99.2, pulse ox 98% on room air. HEENT: Conjunctivae normal. NECK: No jugular venous distention. CARDIOVASCULAR: S1, S2. RESPIRATORY: Breath sounds are diminished at the bases. Scattered rhonchi and crackles. ABDOMEN: Soft, nontender. LEGS: No edema. NERVOUS SYSTEM: Diffusely weak. LABS: Sodium 130, potassium 4.2, creatinine 2.3. ASSESSMENT: 1. Diabetes type 2 uncontrolled with diabetic hyperosmolar state. 2. Acute on chronic renal failure. 3. Hyponatremia. 4. Hyperkalemia. 5. Hyperlipidemia. 6. Urinary tract infection, acute present on admission. RECOMMENDATIONS AND DISCUSSION: I recommend to continue with current medications , continue with monitoring and symptomatic treatment. Otherwise at this time I recommend to continue the antibiotics. I would also continue with insulin and will transition to Lantus at this time. Otherwise monitor closely. Further recommendations to follow. MTDD
[2017-04-01 08:31] LABS: Calcium 8.5 mg/dL (8.4-10.2); Potassium 4.3 mmol/L (3.5-5.1)
[2017-04-01] MEDS: ASPIRIN 325 MG TAB PO SCH (09:16)
[2017-04-01] MEDS: ISOSORBIDE MONONITRATE ER 60 MG TAB.ER.24H PO SCH (09:17)
[2017-04-01] MEDS: DIAZEPAM 2 MG TAB PO SCH (09:17)
[2017-04-01] MEDS: CHOLECALCIFEROL 1,000 UNIT TAB PO SCH (09:17)
[2017-04-01] MEDS: CALCIUM CARB-VIT D 500MG-200UN 1 EACH TAB PO SCH (09:17)
[2017-04-01] MEDS: NITROGLYCERIN OINT 1 INCH/GM PACKET TOPICAL SCH ×2 (09:17→12:47)
[2017-04-01] MEDS: PANTOPRAZOLE 40 MG TABLET PO SCH (09:18)
[2017-04-01] MEDS: RANOLAZINE 500 MG TAB.ER.12H PO SCH (09:18)
--- NOTE | 2017-04-01 11:41 | P.PN ---
Subjective Principal diagnosis: Is an 86-year-old female seen in consultation because of acute kidney injury and chronic kidney disease. She has had chronic kidney disease stage IV with a baseline creatinine of about 2. Her acute kidney injury is deemed to be from hyperglycemia induced volume depletion,'s some history of diarrhea and additionally she had low blood pressure. Blood sugars are much better controlled here in the hospital, her urine output is 13 and 25 mL for the last 24 hours. Patient is feeling better. She is eating better since yesterday. No nausea vomiting diarrhea. She continues to have low blood pressure in the 102-124 range. She is bedridden for some time now because of her legs giving up. Denies any dizziness shortness of breath chest pain sweating cough dysuria frequency. Should be noted that she has a Norris catheter now in the hospital. She is known with coronary artery disease diabetes heart failure and has had a heart catheterization with stent. Objective - Vital Signs Vital signs: Vital Signs Temp 97.2 F L 04/01/17 04:00 Pulse 76 04/01/17 04:00 Resp 16 04/01/17 04:00 BP 124/60 04/01/17 04:00 Pulse Ox 98 04/01/17 04:00 Intake & Output 03/31/17 04/01/17 04/01/17 18:59 06:59 18:59 Intake Total 500 Output Total 1325 Balance 500 -1325 Weight 82.5 kg Intake: Intake, IV Titration 400 Amount Sodium Chloride 0.9% 1, 400 000 ml @ 50 mls/hr IV . Q20H [facility] Rx#:[id number] Oral 100 Output: Urine 1325 Other: Voiding Method Indwelling Catheter Indwelling Catheter Indwelling Catheter On exam she is awake alert oriented 3. HEENT exam no JVP neck is supple no facial asymmetry Lungs are clear to auscultation percussion good air entry bilaterally Heart sounds are unremarkable for any murmur rub gallop. Abdomen is soft nontender no masses felt Extremity exam was no edema Neurologically awake alert oriented. Her memory seems to be somewhat poor. She has no focal motor deficit. - Labs CBC & Chem 7: 04/01/17 07:45 04/01/17 07:42 Labs: Abnormal Lab Results - Last 24 Hours (Table) 03/31/17 03/31/17 03/31/17 Range/Units 11:58 16:44 17:13 RBC (3.80-5.40) m/uL Hgb (11.4-16.0) gm/dL Hct (34.0-46.0) % MCV (80.0-100.0) fL MCH (25.0-35.0) pg Chloride (98-107) mmol/L BUN (7-17) mg/dL Creatinine (0.52-1.04) mg/dL POC Glucose (mg/dL) 205 H 192 H 214 H (75-99) mg/dL 03/31/17 04/01/17 04/01/17 Range/Units 20:29 02:59 07:42 RBC (3.80-5.40) m/uL Hgb (11.4-16.0) gm/dL Hct (34.0-46.0) % MCV (80.0-100.0) fL MCH (25.0-35.0) pg Chloride 108 H (98-107) mmol/L BUN 35 H (7-17) mg/dL Creatinine 2.11 H (0.52-1.04) mg/dL POC Glucose (mg/dL) 202 H 178 H (75-99) mg/dL 04/01/17 Range/Units 07:45 RBC 3.12 L (3.80-5.40) m/uL Hgb 11.0 L (11.4-16.0) gm/dL Hct 32.4 L (34.0-46.0) % MCV 103.9 H (80.0-100.0) fL MCH 35.3 H (25.0-35.0) pg Chloride (98-107) mmol/L BUN (7-17) mg/dL Creatinine (0.52-1.04) mg/dL POC Glucose (mg/dL) (75-99) mg/dL Microbiology - Last 24 Hours (Table) 03/29/17 19:01 Urine Culture - Final Urine,Catheterized Escherichia coli Klebsiella pneumoniae 03/29/17 19:01 Blood Culture - Preliminary Blood No Growth after 48 hours Assessment and Plan Plan: Impression. 1. Acute kidney injury from low blood pressure from combination of osmotic diuresis from a high blood sugar, diarrhea. Creatinine is improved from 2.4- 2.1 this morning. 2. Chronic kidney disease stage IV with with a baseline creatinine off 2.1 as of 07/29/2015 and 2.2 as of 09/14/2015, GFR was 21 mL per minute 3. Hypotension, in spite of reducing Coreg 25 mg to 12.5 twice a day. 4. Diabetes mellitus controlled improved now. 5. Anemia with hemoglobin 11.9>11 today. Recommendation. Reduce coreg further from 12.5 twice a day to 6.25 twice a day Strict I's and O's. Encourage oral intake.
[2017-04-01 12:43] LABS: Glucose,Whole Blood 268 mg/dL (75-99)
[2017-04-01] MEDS ORDERED: CARVEDILOL 6.25 MG TAB PO SCH (17:30)
--- NOTE | 2017-04-02 09:19 | PN ---
DATE OF SERVICE: 03/31/2017 This 86-year-old woman who was admitted with uncontrolled blood sugars also has renal failure. The patient is being closely monitored. Troponins are indeterminate. Cardiology and multiple consultants are following the patient. No chest pain. No palpitations. No fever. On exam, alert and oriented x3. Pulse 78, blood pressure 106/50, respirations 18, temperature 96.8 degrees, pulse ox 98% on room air. HEENT: Conjunctivae normal. NECK: No jugular venous distention. CARDIOVASCULAR: S1, S2. RESPIRATORY: Breath sounds diminished in the bases. A few scattered rhonchi, no crackles. ABDOMEN: Soft, nontender. LEGS: No edema. NERVOUS SYSTEM: No focal deficits. LABS: Creatinine is 2.4. ASSESSMENT: 1. Diabetes mellitus type 2 uncontrolled. 2. Acute on chronic renal failure. 3. Indeterminate troponins. RECOMMENDATIONS AND DISCUSSION: In this 83-year-old woman who presented with multiple complex medical issues, will monitor the patient closely. Continue the current medications, continue symptomatic treatment. Otherwise at this time I recommend increase the dose of Levemir to 25 units and continue to monitor. See orders for further details. MTDD
--- NOTE | 2017-04-03 08:39 | DS ---
FINAL DIAGNOSES: 1. Diabetes mellitus type 2, uncontrolled with diabetic hyperosmolality. 2. Acute on chronic renal failure. 3. Hyponatremia. 4. Hyperkalemia. 5. Hyperlipidemia. 6. Urinary tract infection, acute, present on admission. DISCHARGE DISPOSITION: The patient is being discharged in stable condition with guarded prognosis. Total time taken 35 minutes. HISTORY OF PRESENT ILLNESS: This 87 year old woman with past medical history of multiple medical problems admitted with uncontrolled blood sugars and acute on chronic renal failure. Treated symptomatically. The patient was started on Lantus. On exam, vital signs are stable. Cardiovascular: S1, S2. Abdomen soft. Nervous system: No focal deficits. DISCHARGE ADVICE AND MEDICATIONS: 1. Diet is cardiac. Consistent carbs. 2. Activity limited until follow up. 3. Accu-Cheks a.c. and q.h.s. results to primary physician, Dr. Pantoja. 4. CBC, BMP in two to three days with Dr. Pantoja. 5. Tylenol 500 mg q4h prn. 6. Calcium with Vitamin D one tablet po in the morning. 7. Coreg 6.25 mg po b.i.d. 8. Vitamin D3 5000 daily. 9. Valium 2 mg po t.i.d. 10. Vasotec 5 mg in the morning. 11. Lasix 40 mg po daily. 12. Glucotrol 5 mg po daily. 13. Levemir 25 subcu q.h.s. 14. Imdur 40 mg po daily. 15. Xalatan eye drops one drop right eye. 16. Synthroid 200 mcg po daily, increased dose. 17. Nystop one application topically. 18. Protonix 40 mg po daily. 19. Potassium chloride 20 meq po q.h.s. 20. Ranexa 1000 mg po b.i.d. 21. Colace prn. MTDD
--- NOTE | 2017-04-06 14:39 | CDI ---
In responding to this query, please exercise your independent professional judgment. The [facility] Coding Staff and Clinical Documentation Specialists appreciate your assistance in clarifying documentation, maintaining compliance with coding guidelines, accurately documenting patients condition and capturing severity of illness. The fact that a question is asked does not imply that any particular answer is desired or expected. Communication forms are a method of clarifying documentation and are not made part of the Legal Health Record. Thank you in advance for your clarification. Last Revision, July [address] [place] [address] Documentation Clarification Form Date: 04/06/2017 2:28:00 PM From: Landy Araujo [facility] Admit Date: 03/29/2017 9:54:00 PM Patient Name: Silvia Jimenez Visit Number: [id number] Discharge Date: 04-01-17 Dr. Nereyda Bowie: A pressure ulcer was documented in the ED notes by Dr. Anahi Shi. "Decubital ulcer". Please state stage of ulcer (if applicable) at time of admission and if ulcer progressed in staging during admission and to what stage. See below regarding elements needed. History/Risk Factors: Hyponatremia, UTI, uncontrolled diabetes/DKA, ARF, CKD IV , hyperkalemia, obesity, BMI 30.3, volume depletion, incontinence, Norris catheter, CHF Location: Nursing documentation states stage I coccyx ulcer on 03-29-17 and stage II coccyx ulcer on 03-30-17 Wound description: "no drainage, warm, pink with erythema". No photo found in chart. Treatment: Nursing states that a barrier cream was applied with each assessment. Consults: None for this problem Elements for accurate and compliant documentation of an ulcer: * The location/laterality of the ulcer * Etiology (decubitus/pressure, diabetic, PVD) * Stage I-IV, Unstageable, Suspected Deep Tissue Injury (To the deepest stage) * If the ulcer was present at admission (POA) or occurred after admission In your professional opinion, can you please clarify the diagnosis, location, laterality and whether present on admission (POA): Stage 1 Pressure/Decubitus Ulcer (intact skin, non-blanching redness of local area) Stage 2 Pressure/Decubitus Ulcer (Partial thickness, loss of dermis, pink wound bed) Stage 3 Pressure/Decubitus Ulcer (Full thickness tissue loss) Stage 4 Pressure/Decubitus Ulcer (Full thickness tissue loss with exposed bone, tendon, or muscle. May have slough or eschar present) Unstageable Unable to determine Other condition, please specify * Please indicate cause (if known). Please document in your progress notes and discharge summary in order to capture severity of illness and risk of mortality. Include clinical findings that support your diagnosis. If you have a question regarding this query, please contact Lise Wen [employer] Production Technician at [phone] between 8am and 5pm. FYI: Press F11 to launch patient chart. Place X here if this finding has no clinical significance, is not applicable or if you are not able to provide any additional documentation. CRISTOPHER
--- NOTE | 2017-04-09 11:17 | CDI ---
In responding to this query, please exercise your independent professional judgment. The [facility] Coding Staff and Clinical Documentation Specialists appreciate your assistance in clarifying documentation, maintaining compliance with coding guidelines, accurately documenting patients condition and capturing severity of illness. The fact that a question is asked does not imply that any particular answer is desired or expected. Communication forms are a method of clarifying documentation and are not made part of the Legal Health Record. Thank you in advance for your clarification. Last Revision, July 2015 Lizabeth Bhandari [address] [facility] [place] [address] Documentation Clarification Form Date: 04/09/2017 2:28:00 PM From: Landy Van Phone: Contact Davina Wen, Comptometer Operator [phone] between 8 am -5 pm. Admit Date: 03/29/2017 9:54:00 PM Patient Name: Silvia Jimenez Visit Number: [id number] Discharge Date: 04-01-17 Dr. Nereyda Bowie A pressure ulcer was documented in the ED notes by Dr. Anahi Shi. "Decubital ulcer". Please state stage of ulcer (if applicable) at time of admission and if ulcer progressed in staging during admission and to what stage. See below regarding elements needed. History/Risk Factors: Hyponatremia, UTI, uncontrolled diabetes/DKA, ARF, CKD IV , hyperkalemia, obesity, BMI 30.3, volume depletion, incontinence, Norris catheter, CHF Location: Nursing documentation states stage I coccyx ulcer on 03-29-17 and stage II coccyx ulcer on 03-30-17 Wound description: "no drainage, warm, pink with erythema". No photo found in chart. Treatment: Nursing states that a barrier cream was applied with each assessment. Consults: None for this problem Elements for accurate and compliant documentation of an ulcer: * The location/laterality of the ulcer * Etiology (decubitus/pressure, diabetic, PVD) * Stage I-IV, Unstageable, Suspected Deep Tissue Injury (To the deepest stage) * If the ulcer was present at admission (POA) or occurred after admission In your professional opinion, can you please clarify the diagnosis, location, laterality and whether present on admission (POA): Stage 1 Pressure/Decubitus Ulcer (intact skin, non-blanching redness of local area) Stage 2 Pressure/Decubitus Ulcer (Partial thickness, loss of dermis, pink wound bed) Stage 3 Pressure/Decubitus Ulcer (Full thickness tissue loss) Stage 4 Pressure/Decubitus Ulcer (Full thickness tissue loss with exposed bone, tendon, or muscle. May have slough or eschar present) Unstageable Unable to determine Other condition, please specify * Please indicate cause (if known). PLEASE DOCUMENT AN ADDENDUM TO YOUR DISCHARGE SUMMARY in order to capture severity of illness and risk of mortality. Include clinical findings that support your diagnosis. FYI: Press F11 to launch patient chart. Place X here if this finding has no clinical significance, is not applicable or if you are not able to provide any additional documentation. CRISTOPHER
--- NOTE | 2017-04-16 12:27 | CDI ---
In responding to this query, please exercise your independent professional judgment. The [facility] Coding Staff and Clinical Documentation Specialists appreciate your assistance in clarifying documentation, maintaining compliance with coding guidelines, accurately documenting patients condition and capturing severity of illness. The fact that a question is asked does not imply that any particular answer is desired or expected. Communication forms are a method of clarifying documentation and are not made part of the Legal Health Record. Thank you in advance for your clarification. Last Revision, July 2015 Lizabeth Bhandari [address] [facility] [place] [address] Documentation Clarification Form Date: 04/06/2017 2:28:00 PM From: Landy Araujo Phone: Admit Date: 03/29/2017 9:54:00 PM Patient Name: Silvia Jimenez Visit Number: [id number] Discharge Date: 04-01-17 Dr. Nereyda Bowie A pressure ulcer was documented in the ED notes by Dr. Anahi Shi. "Decubital ulcer". Please state stage of ulcer (if applicable) at time of admission and if ulcer progressed in staging during admission and to what stage. See below regarding elements needed. History/Risk Factors: Hyponatremia, UTI, uncontrolled diabetes/DKA, ARF, CKD IV , hyperkalemia, obesity, BMI 30.3, volume depletion, incontinence, Norris catheter, CHF Location: Nursing documentation states stage I coccyx ulcer on 03-29-17 and stage II coccyx ulcer on 03-30-17 Wound description: "no drainage, warm, pink with erythema". No photo found in chart. Treatment: Nursing states that a barrier cream was applied with each assessment. Consults: None for this problem Elements for accurate and compliant documentation of an ulcer: * The location/laterality of the ulcer * Etiology (decubitus/pressure, diabetic, PVD) * Stage I-IV, Unstageable, Suspected Deep Tissue Injury (To the deepest stage) * If the ulcer was present at admission (POA) or occurred after admission In your professional opinion, can you please clarify the diagnosis, location, laterality and whether present on admission (POA): Stage 1 Pressure/Decubitus Ulcer (intact skin, non-blanching redness of local area) Stage 2 Pressure/Decubitus Ulcer (Partial thickness, loss of dermis, pink wound bed) Stage 3 Pressure/Decubitus Ulcer (Full thickness tissue loss) Stage 4 Pressure/Decubitus Ulcer (Full thickness tissue loss with exposed bone, tendon, or muscle. May have slough or eschar present) Unstageable Unable to determine Other condition, please specify * Please indicate cause (if known). Please document and addendum to your discharge summary in order to capture severity of illness and risk of mortality. Include clinical findings that support your diagnosis. If you have a question about this query, please contact Lise Wen Or Assistant at [phone] between 8am and 5pm. FYI: Press F11 to launch patient chart. MTDD
--- NOTE | 2017-04-16 20:00 | PN ---
ADDENDUM TO FINAL DIAGNOSES: Stage I coccygeal decubitus ulcer. MTDD
== END 2017-04-01 16:08 | disposition home or self-care (01) | DRG 682 ==
LOC: EC 18:08 → SUPCPDRO 18:08 → 6SEL 21:54 → 4MS4W 03-31 14:16
PROVIDERS: ADMIT Internal Medicine; ATTEND Internal Medicine
DX: N17.9 Acute kidney failure, unspecified (principal); E11.00 Type 2 diabetes mellitus with hyperosmolarity without nonketotic hyperglycemic-hyperosmolar coma (NKHHC); L89.151 Pressure ulcer of sacral region, stage 1; I13.0 Hypertensive heart and chronic kidney disease with heart failure and stage 1 through stage 4 chronic kidney disease, or unspecified chronic kidney disease; I95.9 Hypotension, unspecified; E11.22 Type 2 diabetes mellitus with diabetic chronic kidney disease; E87.8 Other disorders of electrolyte and fluid balance, not elsewhere classified; I50.9 Heart failure, unspecified; E87.1 Hypo-osmolality and hyponatremia; E11.622 Type 2 diabetes mellitus with other skin ulcer; N39.0 Urinary tract infection, site not specified; N18.4 Chronic kidney disease, stage 4 (severe); E87.5 Hyperkalemia; E78.5 Hyperlipidemia, unspecified; Z66 Do not resuscitate; I25.10 Atherosclerotic heart disease of native coronary artery without angina pectoris; E86.9 Volume depletion, unspecified; E11.319 Type 2 diabetes mellitus with unspecified diabetic retinopathy without macular edema; H35.30 Unspecified macular degeneration; R32 Unspecified urinary incontinence; D64.9 Anemia, unspecified; R53.1 Weakness; H40.9 Unspecified glaucoma; M19.90 Unspecified osteoarthritis, unspecified site; K21.9 Gastro-esophageal reflux disease without esophagitis; E03.9 Hypothyroidism, unspecified; E66.9 Obesity, unspecified; I25.2 Old myocardial infarction; H91.90 Unspecified hearing loss, unspecified ear; R74.8 Abnormal levels of other serum enzymes; R19.7 Diarrhea, unspecified; K59.00 Constipation, unspecified; I49.3 Ventricular premature depolarization; Z79.84 Long term (current) use of oral hypoglycemic drugs; Z90.49 Acquired absence of other specified parts of digestive tract; Z74.01 Bed confinement status; Z82.49 Family history of ischemic heart disease and other diseases of the circulatory system; Z86.718 Personal history of other venous thrombosis and embolism; Z95.5 Presence of coronary angioplasty implant and graft; Z88.5 Allergy status to narcotic agent; Z79.899 Other long term (current) drug therapy; Z71.3 Dietary counseling and surveillance; Z98.42 Cataract extraction status, left eye; Z98.41 Cataract extraction status, right eye; Z84.1 Family history of disorders of kidney and ureter; Z91.15 Patient's noncompliance with renal dialysis; Z96.0 Presence of urogenital implants
CPT/HCPCS: 36415; 71010; 80048; 80053; 80061; 81001; 82009; 82550; 82553; 83036; 83605; 83735; 84100; 84443; 84484; 85025; 85049; 85610; 85730; 87040; 87077; 87086; 87186; 93005; 93306; 96361; 96365; 96367; 96376; 99285